=== PATIENT | male | born 1940 | race Caucasian/White ===

== ENCOUNTER → 2017-03-09 | Outpatient (REF) | payer MEDICARE, OTHER ==
[~2017-03-09] MED LIST: ATOR40TA PO; COUM2.5T11 PO; EXCETAB81; FERR325T PO; LISI10TA2 PO; MULTCHW3 PO; NEXI40CA PO; PERC5TAB6 PO; TYLE325T5 PO; VICO5TAB16 PO
[2017-03-09 18:28] LABS: PERCENT SATURATION 34.9 % (19.7-37.4)
== END ==
LOC: M LAB REF 16:45
PROVIDERS: ATTEND Nurse Practitioner Adult Health
DX: D50.9 Iron deficiency anemia, unspecified (principal)

== ENCOUNTER → 2017-11-03 | Outpatient (REF) | payer MEDICARE, OTHER ==
[2017-11-03 21:27] LABS: ANION GAP 6 MEQ/L (8-16); BLOOD UREA NITROGEN 19 MG/DL (7-18); CALCIUM LEVEL 8.6 MG/DL (8.8-10.2); CARBON DIOXIDE LEVEL 31 MEQ/L (21-32); CHLORIDE LEVEL 101 MEQ/L (98-107); CREATININE FOR GFR 0.88 MG/DL (0.70-1.30); GLOMERULAR FILTRATION RATE > 60.0 (>42); GLUCOSE, FASTING 104 MG/DL (83-110); POTASSIUM SERUM 4.3 MEQ/L (3.5-5.1); SODIUM LEVEL 138 MEQ/L (136-145)
== END ==
LOC: M LAB REF 08:47
DX: I10 Essential (primary) hypertension (principal)
CPT/HCPCS: 80048

== ENCOUNTER 2019-03-08 06:23 | Day surgery (SDC) | payer MEDICARE, OTHER ==
[~2019-03-08] VITALS: Ht 167.6 cm; Wt 74.8 kg
[~2019-03-08 06:23] MED LIST changes: -ATOR40TA PO; +ATOR40TA75 PO; -COUM2.5T11 PO; +COUM2.5T17 PO; +EXCETAB44 PO; +FERR1TAB8 PO; -FERR325T PO; +MULTCAP PO; +PERC5TAB12 PO; -PERC5TAB6 PO; +SPIR-10 PO; -VICO5TAB16 PO; +VICO5TAB17 PO
[2019-03-08] MEDS ORDERED: POVIDONE-IODINE 5% OPHTH PREP SOL 30ML As Ordered ONE (06:37)
[2019-03-08] MEDS ORDERED: BALANCED SALT IRRIGATION SOLUTION 500ML BAG (FOR OR EYE MACHINE) As Ordered ONE (06:37)
[2019-03-08] MEDS ORDERED: DUOVISC (0.50ML VISCOAT/0.55ML PROVISC) OPHTH KIT As Ordered ONE (06:38)
[2019-03-08] MEDS ORDERED: LIDOCAINE 0.75%/EPINEPHRINE 0.025% IN BSS 1ML SYR INTRACAMERAL (OR ONLY) As Ordered ONE (06:38)
[2019-03-08] MEDS ORDERED: CEFUROXIME 1MG/0.1ML INTRACAMERAL INJ As Ordered ONE (06:38)
[2019-03-08] MEDS ORDERED: PHENYLEPHRINE 2.5% OPHTH SOL 2ML OS ONE (07:00)
[2019-03-08] MEDS ORDERED: PROPARACAINE 0.5% OPHTH SOL 15ML OS ONE (07:00)
[2019-03-08] MEDS ORDERED: TROPICAMIDE 1% OPHTH SOLN 2ML OS ONE (07:00)
[2019-03-08] MEDS ORDERED: OFLOXACIN 0.3 % (OCUFLOX) OPTH SOL 5ML OS ONE (07:00)
[2019-03-08] MEDS ORDERED: MIDAZOLAM INJ 2 MG/2 ML VIAL (J2250) As Ordered ONE (07:13)
[2019-03-08 08:45] VITALS: BP 143/75
--- NOTE | 2019-03-09 15:54 | RO ---
DATE OF PROCEDURE: 03/08/2019 PREOPERATIVE DIAGNOSES: 1. Visually significant nuclear sclerotic cataract left eye. 2. Glaucoma left eye. POSTOPERATIVE DIAGNOSES: 1. Visually significant nuclear sclerotic cataract left eye. 2. Glaucoma left eye. PROCEDURE: 1. Cataract extraction with use of phacoemulsification and placement of intraocular lens, AU00T0, 22.0 D, left eye. 2. Placement of Glaukos iStent left eye. SURGEON: Syed Quiñones DO [employer]ER ASSOCIATE: None. ANESTHESIA: Local with monitored anesthesia care (MAC). COMPLICATIONS: None. POSTOPERATIVE CONDITION: Stable. INDICATIONS FOR SURGERY: 1. Blurred vision affecting patients activities of daily living. DESCRIPTION OF PROCEDURE: The patient was seen in the preoperative area and properly identified. The correct operative eye was identified and marked. The patient received topical anesthetic, antibiotics, and topical dilating drops. The patient was then transferred to the operating room. The correct side was re-identified, and a time-out was performed. The eye was prepped and draped in a sterile fashion. The eyelids were isolated with Tegaderm tape, and the lids were held open with an adjustable speculum. A 1.0 mm paracentesis incision was made. Intraocular preservative-free Shugarcaine was then injected into the anterior chamber. Viscoelastic was then injected into the anterior chamber through the paracentesis. Using a 2.4 mm sharp-tipped keratome, the anterior chamber was entered via a temporal clear cornea incision. A continuous curvilinear capsulorrhexis was created with Utrata forceps. Hydrodissection was performed with balanced salt solution (BSS) on a blunt cannula until the nucleus was able to rotate freely. The crystalline lens was phacoemulsified and aspirated. Irrigation/aspiration was used to remove the cortical material. Cohesive viscoelastic was placed into the capsular bag to deepen it. The implant was placed into the capsular bag and allowed to unfold. Placement was confirmed by visualizing the anterior capsulorrhexis. Additional viscoelastic was placed in the anterior chamber and on top of the cornea. The head was untaped and rotated away. The microscope was rotated to 45 degrees. A gonioprism was placed on the cornea, and the angle was visualized. An iStent was placed into the trabecular meshwork without difficulty. A small gush of heme was noted at the iStent snorkel tip, indicating appropriate placement. A gentle tapping motion was used to seat the stent into position. The head was placed face up and the microscope to 0 degrees. Irrigation/aspiration was used to remove the viscoelastic. The clear corneal incision was hydrated with BSS on a blunt cannula. The lens was well positioned. The incisions were then tested for leaks and found to be negative. The eye was then palpated for appropriate pressure and adjusted accordingly with BSS. The eyelid speculum was then carefully removed. A shield was placed over the eye. The patient tolerated the procedure well and was discharged to the recovery unit in a stable condition.
== END 2019-03-08 09:25 | disposition home or self-care (01) ==
LOC: M SDC 06:23
PROVIDERS: ATTEND Ophthalmology
DX: H25.12 Age-related nuclear cataract, left eye (principal); H40.812 Glaucoma with increased episcleral venous pressure, left eye; I25.10 Atherosclerotic heart disease of native coronary artery without angina pectoris; I10 Essential (primary) hypertension; I25.2 Old myocardial infarction; K21.9 Gastro-esophageal reflux disease without esophagitis; Z98.61 Coronary angioplasty status; Z88.5 Allergy status to narcotic agent; Z91.040 Latex allergy status; Z79.899 Other long term (current) drug therapy
CPT/HCPCS: 66183; 66984; C1783; J2250; V2632

== ENCOUNTER 2019-04-19 05:54 | Day surgery (SDC) | payer MEDICARE, OTHER ==
[~2019-04-19] VITALS: Ht 167.6 cm; Wt 74.8 kg
[2019-04-19] MEDS ORDERED: BALANCED SALT IRRIGATION SOLUTION 500ML BAG (FOR OR EYE MACHINE) As Ordered ONE (06:37)
[2019-04-19] MEDS ORDERED: POVIDONE-IODINE 5% OPHTH PREP SOL 30ML As Ordered ONE (06:37)
[2019-04-19] MEDS ORDERED: LIDOCAINE 0.75%/EPINEPHRINE 0.025% IN BSS 1ML SYR INTRACAMERAL (OR ONLY) As Ordered ONE (06:38)
[2019-04-19] MEDS ORDERED: DUOVISC (0.50ML VISCOAT/0.55ML PROVISC) OPHTH KIT As Ordered ONE (06:38)
[2019-04-19] MEDS ORDERED: CEFUROXIME 1MG/0.1ML INTRACAMERAL INJ As Ordered ONE (06:38)
[2019-04-19] MEDS ORDERED: PROPARACAINE 0.5% OPHTH SOL 15ML OD ONE (07:00)
[2019-04-19] MEDS ORDERED: OFLOXACIN 0.3 % (OCUFLOX) OPTH SOL 5ML OD ONE (07:00)
[2019-04-19] MEDS ORDERED: TROPICAMIDE 1% OPHTH SOLN 2ML OD ONE (07:00)
[2019-04-19] MEDS ORDERED: PHENYLEPHRINE 2.5% OPHTH SOL 2ML OD ONE (07:00)
[2019-04-19] MEDS ORDERED: fentaNYL 100 MCG/2 ML INJECTION (J3010) As Ordered ONE (07:34)
[2019-04-19] MEDS ORDERED: MIDAZOLAM INJ 2 MG/2 ML VIAL (J2250) As Ordered ONE (07:34)
[2019-04-19 08:10] VITALS: BP 130/67
--- NOTE | 2019-04-20 08:08 | RO ---
DATE OF PROCEDURE: 04/19/2019 PREOPERATIVE DIAGNOSES: 1. Visually significant nuclear sclerotic cataract right eye. 2. Primary open angle glaucoma, moderate stage right eye. POSTOPERATIVE DIAGNOSES: 1. Visually significant nuclear sclerotic cataract right eye. 2. Primary open angle glaucoma, moderate stage right eye. PROCEDURE: 1. Cataract extraction with use of phacoemulsification and placement of intraocular lens, AU00T0, 21.5 eye. 2. Placement of Glaukos iStent right eye. SURGEON: Syed Quiñones DO [employer] JUSTICE: None. ANESTHESIA: Local with monitored anesthesia care (MAC). COMPLICATIONS: None. POSTOPERATIVE CONDITION: Stable. INDICATIONS FOR SURGERY: 1. Blurred vision affecting patients activities of daily living. DESCRIPTION OF PROCEDURE: The patient was seen in the preoperative area and properly identified. The correct operative eye was identified and marked. The patient received topical anesthetic, antibiotics, and topical dilating drops. The patient was then transferred to the operating room. The correct side was re-identified, and a time-out was performed. The eye was prepped and draped in a sterile fashion. The eyelids were isolated with Tegaderm tape, and the lids were held open with an adjustable speculum. A 1.0 mm paracentesis incision was made. Intraocular preservative-free Shugarcaine was then injected into the anterior chamber. Viscoelastic was then injected into the anterior chamber through the paracentesis. Using a 2.4 mm sharp-tipped keratome, the anterior chamber was entered via a temporal clear cornea incision. A continuous curvilinear capsulorrhexis was created with Utrata forceps. Hydrodissection was performed with balanced salt solution (BSS) on a blunt cannula until the nucleus was able to rotate freely. The crystalline lens was phacoemulsified and aspirated. Irrigation/aspiration was used to remove the cortical material. Cohesive viscoelastic was placed into the capsular bag to deepen it. The implant was placed into the capsular bag and allowed to unfold. Placement was confirmed by visualizing the anterior capsulorrhexis. Additional viscoelastic was placed in the anterior chamber and on top of the cornea. The head was untaped and rotated away. The microscope was rotated to 45 degrees. A gonioprism was placed on the cornea, and the angle was visualized. An iStent was placed into the trabecular meshwork without difficulty. A small gush of heme was noted at the iStent snorkel tip, indicating appropriate placement. A gentle tapping motion was used to seat the stent into position. The head was placed face up and the microscope to 0 degrees. Irrigation/aspiration was used to remove the viscoelastic. The clear corneal incision was hydrated with BSS on a blunt cannula. The lens was well positioned. The incisions were then tested for leaks and found to be negative. The eye was then palpated for appropriate pressure and adjusted accordingly with BSS. The eyelid speculum was then carefully removed. A shield was placed over the eye. The patient tolerated the procedure well and was discharged to the recovery unit in a stable condition. DIAN
== END 2019-04-19 08:25 | disposition home or self-care (01) ==
LOC: M SDC 05:54
PROVIDERS: ATTEND Ophthalmology
DX: H25.12 Age-related nuclear cataract, left eye (principal); H40.1111 Primary open-angle glaucoma, right eye, mild stage; I25.10 Atherosclerotic heart disease of native coronary artery without angina pectoris; I10 Essential (primary) hypertension; E78.5 Hyperlipidemia, unspecified; Z79.899 Other long term (current) drug therapy; Z91.040 Latex allergy status; Z98.61 Coronary angioplasty status; Z95.1 Presence of aortocoronary bypass graft; K21.9 Gastro-esophageal reflux disease without esophagitis; Z88.8 Allergy status to other drugs, medicaments and biological substances
CPT/HCPCS: 66183; 66984; C1783; J2250; J3010; V2632